=== PATIENT | male | born 1940 | race Caucasian/White ===

== ENCOUNTER 2020-12-10 09:07 | Emergency (ER) | payer OTHER ==
[2020-12-10] MEDS ORDERED: Fentanyl 100 MCG/2 ML VIAL ONE ×2 (09:48→14:36)
[2020-12-10] MEDS ORDERED: Azithromycin 500 MG VIAL ONE (09:49)
[2020-12-10] MEDS ORDERED: Aspirin 325 MG TAB ONE (09:49)
[2020-12-10] MEDS ORDERED: Ondansetron PF 4 MG/2 ML Vial ONE (09:49)
[2020-12-10] MEDS ORDERED: cefTRIAXone\\ROCEPHIN 2 GM VIAL ONE (09:49)
[2020-12-10 10:01] LABS: ALT (SGPT) 15 U/L (8-55); AST (SGOT) 15 U/L (5-34); Albumin 3.4 g/dL (3.4-4.8); Alkaline Phosphatase 86 U/L (40-110); Anion Gap 19 mmol/L (10-20); BUN (Urea Nitrogen) 31 mg/dL (8.4-25.7); Bilirubin, Total 0.8 mg/dL (0.2-1.2); Calc. Creatinine Clearance 0 mL/min (70-130); Calcium 9.7 mg/dL (7.8-10.44); Carbon Dioxide 20 mmol/L (23-31); Chloride 104 mmol/L (98-107); Globulin 4.4 g/dL (2.4-3.5); Glucose 97 mg/dL (83-110); Lipase 5 U/L (8-78); Potassium 4.9 mmol/L (3.5-5.1); Protein, Total 7.8 g/dL (5.8-8.1); Sodium 138 mmol/L (136-145)
[2020-12-10 10:06] LABS: Band 4 % (5-11); Eosinophils 2 % (0-10); Hemoglobin 13.6 g/dL (14.0-18.0); Lymphocytes 10 % (21-51); MDiff Complete? YES; Mean Corpuscular HGB CONC 32.9 g/dL (32.0-36.0); Mean Corpuscular Hemoglobin 30.3 pg (27.0-31.0); Mean Corpuscular Volume 92.1 fL (78.0-98.0); Mean Platelet Volume 6.4 fL (7.4-10.4); Metamyelocyte 3 % (0-0); Monocytes 4 % (0-10); Neutrophil 77 % (42-75); Platelet Count 344 thou/uL (130-400); Red Blood Cell (RBC) Count 4.47 mill/uL (4.70-6.10); Toxic Granulation MODERATE; White Blood Cell (WBC) Count 22.6 thou/uL (4.8-10.8)
[2020-12-10 11:45] LABS: SARS-CoV-2 NAA Rapid Test Not Detected (NotDetected)
[2020-12-10 12:56] LABS: Troponin I Less than 0.010 ng/mL (< 0.028)
== END 2020-12-10 19:15 ==
LOC: BURERS 09:07
DX: A41.9 Sepsis, unspecified organism (principal); J18.9 Pneumonia, unspecified organism; Z20.822 Contact with and (suspected) exposure to COVID-19; F17.210 Nicotine dependence, cigarettes, uncomplicated
CPT/HCPCS: 0240U; 36415; 71045; 80053; 83605; 83690; 83880; 84484; 85025; 85379; 87040; 93005; 96365; 96367; 96375; 96376; J0456; J0696; J2405; J3010